=== PATIENT | female | born 1980 | race Caucasian/White ===

== ENCOUNTER 2018-10-09 08:47 | Emergency (ER) | payer OTHER ==
[2018-10-09 08:52] VITALS: BP 111/43; PULSE 87; TEMP 98.5; BMI 20.1
--- NOTE | 2018-10-09 09:05 | PDOC ---
History of Present Illness - General Chief Complaint: Weakness Stated Complaint: right hand numbness and weekness Time Seen by Provider: 10/09/18 08:49 - History of Present Illness Initial Comments: 10/09/18 09:00 37 F with h/o asthma presents to ED with intermittent R hand numbness. Pt states that for several weeks, she has been having intermittent numbness of her entire R hand. Denies any weakness but states that she feels "pins and needles" . Does not know of any exacerbating or alleviating factors. Today, she spoke with her PCP, who recommended she come to the ED to "get a scan". Pt denies any headaches. Denies neck pain. Denies weakness/numbness in any other part of her body. She has no FH of stroke. 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 Denies any recent injury or trauma to her wrist. Pt is left handed. No FH of MS or other neuro disorders. Past History - Past Medical History Allergies/Adverse Reactions: Allergies Allergy/AdvReac Type Severity Reaction Status Date / Time Penicillins Allergy Verified 10/09/18 08:48 Home Medications: Ambulatory Orders Etonogestrel/Ethinyl Estradiol [Nuvaring Vaginal Ring] 1 supp.vag VG ONCE COPD: No Other medical history: pt denies - Suicide/Smoking/Psychosocial Hx Smoking Status: No Smoking History: Never smoked Number of Cigarettes Smoked Daily: 0 Hx Alcohol Use: Yes (social) Drug/Substance Use Hx: No Review of Systems - Review of Systems Comments:: 10/09/18 09:02 "GENERAL/CONSTITUTIONAL: No fever or chills. No weakness. HEAD, EYES, EARS, NOSE AND THROAT: No change in vision. No ear pain or discharge. No sore throat. CARDIOVASCULAR: No chest pain, no shortness of breath, no loss of consciousness RESPIRATORY: No cough, wheezing, or hemoptysis. GASTROINTESTINAL: No nausea, vomiting, diarrhea or constipation. GENITOURINARY: No dysuria, frequency, or change in urination. MUSCULOSKELETAL: No joint or muscle swelling or pain. No neck or back pain. SKIN: No rash NEUROLOGIC: + R hand numbness, No vertigo, no change in strength ENDOCRINE: No increased thirst. No abnormal weight change. HEMATOLOGIC/LYMPHATIC: No anemia, easy bleeding, or history of blood clots. ALLERGIC/IMMUNOLOGIC: No hives or skin allergy. *Physical Exam - Vital Signs Last Vital Signs Temp Pulse Resp BP Pulse Ox 98.5 F 87 18 111/43 L 100 10/09/18 08:48 10/09/18 08:48 10/09/18 08:48 10/09/18 08:48 10/09/18 08:48 - Physical Exam Comments: 10/09/18 09:03 GENERAL: Awake, alert, and fully oriented, in no acute distress. HEAD: No signs of trauma EYES: PERRLA, EOMI, sclera anicteric, conjunctiva clear ENT: Auricles normal inspection, hearing grossly normal, nares patent, oropharynx clear without exudates. Moist mucosa NECK: Nontender, no stepoffs, Normal ROM, supple, no lymphadenopathy, JVD, or masses LUNGS: Breath sounds equal, clear to auscultation bilaterally. No wheezes, and no crackles HEART: Regular rate and rhythm, normal S1 and S2, no murmurs, rubs or gallops ABDOMEN: Soft, nontender, normoactive bowel sounds. No guarding, no rebound. No masses EXTREMITIES: Normal range of motion, no edema. No clubbing or cyanosis. No cords, erythema, or tenderness NEUROLOGICAL: + diminished sensation to R hand, Cranial nerves II through XII intact. 5/5 strength in all extremities, Normal speech, normal gait, normal cerebellar function SKIN: Warm, Dry, normal turgor, no rashes or lesions noted. Moderate Sedation - Procedure Monitoring Vital Signs: Procedure Monitoring Vital Signs Temperature 98.5 F 10/09/18 08:48 Pulse Rate 87 10/09/18 08:48 Respiratory Rate 18 10/09/18 08:48 Blood Pressure 111/43 L 10/09/18 08:48 O2 Sat by Pulse Oximetry (%) 100 10/09/18 08:48 Medical Decision Making - Medical Decision Making 10/09/18 09:03 37 F with intermittent R hand numbness. Likely carpal tunnel syndrome given + phalen and tinel sign on exam. Pt with NO other neuro deficits to suggest intracranial pathology. No neck pain to suggest c-spine injury. Unlikely demyelinating disease as pt with no family history. - Ortho f/u Pt is well appearing, with normal vitals. Clinically stable for DC at this time. I discussed the physical exam findings, ancillary test results and final diagnoses with the patient. I answered all of the patient's questions. The patient was satisfied with the care received and felt comfortable with the discharge plan and treatment plan. The patient agrees to follow up with the primary care physician within 24-72 hours. *DC/Admit/Observation/Transfer Diagnosis at time of Disposition: Carpal tunnel syndrome - Discharge Dispostion Disposition: HOME Condition at time of disposition: Stable - Referrals Referrals: Randy Stevens MD [Staff Physician] - - Patient Instructions Printed Discharge Instructions: DI for Carpal Tunnel Syndrome Additional Instructions: You likely have carpal tunnel syndrome. Call the number provided to make an appointment with an orthopedic surgeon for further evaluation. Avoid excessive typing or other repetitive motions involving your wrist. If you must type, wear a wrist brace. If you experience any worsening numbness, numbness extending past the wrist, weakness, or any other concerning symptoms, return to the ER immediately. - Post Discharge Activity Forms/Work/School Notes: Back to Work - Attestations Physician Attestion: 10/09/18 09:07 I, Dr. Robert Tomas MD, attest that this document has been prepared under my direction and personally reviewed by me in its entirety. I further attest, that it accurately reflects all work, treatment, procedures and medical decision -making performed by me.
== END 2018-10-09 09:18 | disposition home or self-care (01) ==
LOC: FER 08:47
DX: G56.01 Carpal tunnel syndrome, right upper limb (principal)
CPT/HCPCS: 99281-25

== ENCOUNTER 2019-01-09 09:44 | Day surgery (SDC) | payer OTHER ==
[2019-01-01 16:21] VITALS: BMI 20.1
[2019-01-09] MEDS ORDERED: PROPOFOL 20 ML ONE (10:42)
[2019-01-09] MEDS ORDERED: MIDAZOLAM HCL 2 MG/2 ML SINGLE DOSE VIAL ONE (10:42)
[2019-01-09] MEDS ORDERED: DEXAMETHASONE SOD PHOSPHATE 4 MG/1 ML VIAL ONE (10:45)
[2019-01-09] MEDS ORDERED: LIDOCAINE HCL/PF 2% SDV 5ML VIAL ONE (10:45)
[2019-01-09] MEDS ORDERED: ONDANSETRON 4 MG/2 ML VIAL ONE (10:45)
[2019-01-09] MEDS ORDERED: BUPIVACAINE HCL 0.25% 125 MG/50 ML VIAL ONE (10:52)
[2019-01-09] MEDS ORDERED: BUPIVACAINE HCL/PF 0.25% (2.5MG/ML) 10 ML VIAL IJ ONE (11:40)
[2019-01-09 12:24] VITALS: PULSE 72
[2019-01-09 13:16] VITALS: BP 105/64; TEMP 98
[2019-01-09] MEDS ORDERED: LACTATED RINGERS SOLUTION 1,000 ML IV SCH (15:15)
[2019-01-09] MEDS ORDERED: ONDANSETRON 4 MG/2 ML VIAL IVPUSH PRN (15:15)
[2019-01-09] MEDS ORDERED: oxyCODONE HCL 5 MG TABLET PO PRN ×2 (15:15)
--- NOTE | 2019-01-10 09:41 | OP ---
DATE OF OPERATION: 01/09/2019 PREOPERATIVE DIAGNOSIS: Right endoscopic carpal tunnel release. POSTOPERATIVE DIAGNOSIS: Right endoscopic carpal tunnel release. OPERATIVE PROCEDURE: Right endoscopic carpal tunnel release. SURGEON: Randy Saenz MD ANESTHESIA: General. COMPLICATIONS: None. ESTIMATED BLOOD LOSS: Minimal. INDICATION FOR PROCEDURE: The patient is a 38-year-old female with the above finding, indicated for operative treatment. The risks, benefits and alternatives were discussed with the patient at length and proper informed consent was obtained. DESCRIPTION OF PROCEDURE: After proper identification of the patient and the correct operative site, the patient was brought to the operating room and placed supine on the operating table with all prominences well padded. General anesthesia was given. The right upper extremity was prepped and draped in the usual sterile fashion. An Esmarch bandage was used to exsanguinate the right upper extremity and the tourniquet was inflated to 250 mmHg. Superficial landmarks were drawn on the skin. A transverse incision was made over the proximal wrist crease, taking care to stay ulnar to the palmaris longus tendon. Blunt and sharp dissection was done through the subcutaneous tissues. The antebrachial fascia was identified and divided. The carpal canal was then entered with an elevator and soft tissue was freed from the undersurface of the transcarpal ligament. _Hamate finder dilator was used to prepare the canal and the microaire endoscopic carpal tunnel system was used and inserted to the distal edge of the transverse carpal ligament. The blade was then deflated and the transverse carpal ligament was released. At all times throughout this procedure, excellent visualization was achieved and at no time was any soft tissue allowed to interpose between the blade and the undersurface of the transverse carpal ligament. The distal 4 cm of the antebrachial fascia were also divided under direct visualization using a mini open approach. The wound was then irrigated and repaired with a 5-0 nylon suture. Sterile dressings were applied. The patient was reversed from anesthesia and brought to the recovery room in stable condition. She tolerated the procedure well. RANDY SAENZ M.D. [id number] MTDD
== END 2019-01-09 13:19 | disposition home or self-care (01) ==
LOC: FASU 09:44
PROVIDERS: ATTEND Orthopaedic Surgery Hand Surgery
PROC: 01N54ZZ Release Median Nerve, Percutaneous Endoscopic Approach (ICD-10-PCS; principal; 2019-01-09 11:00)
DX: G56.01 Carpal tunnel syndrome, right upper limb (principal)
CPT/HCPCS: 84703; 94760

== ENCOUNTER 2021-06-03 09:15 | Emergency (ER) | payer OTHER ==
[2021-06-03 09:39] VITALS: BP 95/60; PULSE 73; TEMP 99; BMI 23.0
[2021-06-03] MEDS ORDERED: ACETAMINOPHEN 500 MG TABLET (FP) PO ONE (10:02)
[2021-06-03] MEDS ORDERED: ACETAMINOPHEN 160 MG/5 ML *Children Solution PO ONE (10:06)
[2021-06-03] MEDS ORDERED: ACETAMINOPHEN 650 MG/20.3 ML ORAL SOLUTION (CUPS) ONE (10:11)
[2021-06-03] MEDS ORDERED: KETOROLAC TROMETHAMINE 15 MG/ML VIAL IM ONE (10:57)
[2021-06-03] MEDS ORDERED: KETOROLAC TROMETHAMINE 15 MG/ML VIAL ONE (11:04)
== END 2021-06-03 14:12 | disposition home or self-care (01) ==
LOC: FER 09:15
PROC: 3E0233Z Introduction of Anti-inflammatory into Muscle, Percutaneous Approach (ICD-10-PCS; principal; 2021-06-03)
DX: M54.5 Low back pain (principal); M25.521 Pain in right elbow; M79.604 Pain in right leg; W10.8XXA Fall (on) (from) other stairs and steps, initial encounter; Y92.018 Other place in single-family (private) house as the place of occurrence of the external cause; Y93.01 Activity, walking, marching and hiking
CPT/HCPCS: 72100-TC-FY; 73070-TC-RT-FY; 73590-TC-RT-FY; 84703; 99285-25

== ENCOUNTER 2021-12-14 14:07 | Inpatient (IN) | payer BC, OTHER ==
[2021-12-14] MEDS ORDERED: VANCOMYCIN 1 GM in D5W (PRE-DOCKED) 1,000 MG/250 ML IVPB ONE (15:41)
[2021-12-14] MEDS ORDERED: VANCOMYCIN 1 GRAM (PRE-DOCKED) 1,000 MG/250 ML BAG IVPB ONE (16:13)
[2021-12-14] MEDS ORDERED: ACETAMINOPHEN 1000 MG/100 ML BAG IVPB ONE (16:14)
[2021-12-14] MEDS ORDERED: ACETAMINOPHEN INJECTION 100 ML IVPB ONE (16:37)
[2021-12-14 17:36] LABS: CALCIUM 8.9 mg/dL (8.5-10.1)
[2021-12-14 17:37] LABS: BLOOD UREA NITROGEN 9.5 mg/dL (7-18)
[2021-12-14 17:40] LABS: CREATININE 0.9 mg/dL (0.55-1.3)
[2021-12-14 17:41] LABS: BILIRUBIN,TOTAL 0.9 mg/dL (0.2-1); TOT PROT 8.1 g/dl (6.4-8.2)
[2021-12-14 17:56] LABS: BASO % 0.5 % (0-2.0); EOS % 3.7 % (0-4.5); HEMATOCRIT 38.1 % (32.4-45.2); HEMOGLOBIN 12.6 GM/dL (10.7-15.3); LYMPH % 22.9 % (8-40); MCH 31.4 pg (25.7-33.7); MEAN CELL VOLUME 95.3 fl (80-96); MEAN PLT VOLUME 7.8 fl (7.5-11.1); MONO % 5.2 % (3.8-10.2); NEUT % 67.7 % (42.8-82.8); PLATELET COUNT 273 10^3/uL (134-434); RDW 12.6 % (11.6-15.6)
[2021-12-15] MEDS ORDERED: ACETAMINOPHEN 1000 MG/100 ML BAG IVPB ONE ×2 (00:17→20:19)
[2021-12-15] MEDS ORDERED: HEPARIN NA (PORCINE) 5,000 UNITS/ML 1ML VIAL ONE (00:20)
[2021-12-15] MEDS: HEPARIN NA (PORCINE) 5,000 UNITS/ML 1ML VIAL SQ SCH ×3 (00:40→21:07)
[2021-12-15] MEDS ORDERED: VANCOMYCIN 1,000 MG in DEXTROSE 5%-WATER - 250 ML IVPB SCH (04:00)
[2021-12-15] MEDS ORDERED: SODIUM CHLORIDE 1,000 ML IV SCH (04:30)
[2021-12-15] MEDS: VANCOMYCIN 1 GRAM (PRE-DOCKED) 1,000 MG/250 ML BAG IVPB SCH ×2 (04:55→17:45)
[2021-12-15 05:28] VITALS: BMI 24.7
[2021-12-15 09:57] LABS: BASO % 0.6 % (0-2.0); HEMATOCRIT 37.5 % (32.4-45.2); HEMOGLOBIN 12.5 GM/dL (10.7-15.3); LYMPH % 36.2 % (8-40); MCH 31.6 pg (25.7-33.7); MCHC 33.3 g/dl (32.0-36.0); MEAN CELL VOLUME 94.9 fl (80-96); NEUT % 48.2 % (42.8-82.8); PLATELET COUNT 296 10^3/uL (134-434); RBC 3.95 M/mm3 (3.60-5.2); RDW 12.6 % (11.6-15.6); WHITE BLOOD COUNT 8.7 K/mm3 (4.0-10.0)
[2021-12-15 10:12] LABS: CALCIUM 8.6 mg/dL (8.5-10.1)
[2021-12-15 10:13] LABS: ALBUMIN 3.5 g/dl (3.4-5.0)
[2021-12-15 10:15] LABS: CREATININE 0.5 mg/dL (0.55-1.3)
[2021-12-15 10:17] LABS: BILIRUBIN,TOTAL 0.6 mg/dL (0.2-1); TOT PROT 7.2 g/dl (6.4-8.2)
[2021-12-15] MEDS ORDERED: traMADol HCL 50 MG TABLET PO PRN (12:28)
[2021-12-15] MEDS ORDERED: ACETAMINOPHEN 325 MG TABLET (FP) PO PRN (12:28)
[2021-12-15] MEDS ORDERED: KETOROLAC TROMETHAMINE 30 MG/1 ML VIAL IVPUSH PRN (17:18)
[2021-12-15] MEDS ORDERED: ONDANSETRON *ODT* 4 MG TABLET SL PRN (17:19)
[2021-12-15] MEDS ORDERED: FAMOTIDINE 20 MG/50 ML IVPB 20 MG/50 ML MG IVPB ONE (17:19)
[2021-12-15] MEDS ORDERED: DEXTROSE 5%-NORMAL SALINE 1,000 ML IV SCH (22:00)
[2021-12-16] MEDS: VANCOMYCIN 1 GRAM (PRE-DOCKED) 1,000 MG/250 ML BAG IVPB SCH ×2 (05:14→16:06)
[2021-12-16] MEDS: HEPARIN NA (PORCINE) 5,000 UNITS/ML 1ML VIAL SQ SCH ×2 (09:43→21:59)
[2021-12-16] MEDS ORDERED: MIDAZOLAM HCL 2 MG/2 ML SINGLE DOSE VIAL ONE (19:31)
[2021-12-16] MEDS ORDERED: VANCOMYCIN 1,000 MG VIAL (RESTRICTED TO ID ONLY) IVPB ONE (19:43)
[2021-12-16] MEDS ORDERED: VANCOMYCIN 1,000 MG VIAL (RESTRICTED TO ID ONLY) ONE (19:49)
[2021-12-16] MEDS ORDERED: DEXAMETHASONE SOD PHOSPHATE 4 MG/1 ML VIAL ONE (20:01)
[2021-12-16] MEDS ORDERED: KETOROLAC TROMETHAMINE 30 MG/1 ML VIAL ONE (20:01)
[2021-12-16] MEDS ORDERED: KETOROLAC TROMETHAMINE 30 MG/1 ML VIAL IVPUSH PRN (21:19)
[2021-12-16] MEDS ORDERED: traMADol HCL 50 MG TABLET PO PRN (21:19)
[2021-12-16] MEDS ORDERED: ONDANSETRON *ODT* 4 MG TABLET SL PRN (21:19)
[2021-12-16] MEDS: DEXTROSE 5%-NORMAL SALINE 1,000 ML IV SCH (22:00)
[2021-12-17] MEDS ORDERED: ACETAMINOPHEN 1000 MG/100 ML BAG IVPB ONE (04:30)
[2021-12-17] MEDS: VANCOMYCIN 1 GRAM (PRE-DOCKED) 1,000 MG/250 ML BAG IVPB SCH ×2 (05:07→16:33)
[2021-12-17] MEDS: DEXTROSE 5%-NORMAL SALINE 1,000 ML IV SCH ×2 (06:17→20:51)
[2021-12-17 10:02] LABS: HEMATOCRIT 35.6 % (32.4-45.2); HEMOGLOBIN 11.8 GM/dL (10.7-15.3); MCH 31.6 pg (25.7-33.7); MCHC 33.3 g/dl (32.0-36.0); MEAN CELL VOLUME 94.9 fl (80-96); MEAN PLT VOLUME 7.9 fl (7.5-11.1); PLATELET COUNT 303 10^3/uL (134-434); RBC 3.75 M/mm3 (3.60-5.2); RDW 12.5 % (11.6-15.6); WHITE BLOOD COUNT 7.9 K/mm3 (4.0-10.0)
[2021-12-17 10:35] LABS: CALCIUM 8.4 mg/dL (8.5-10.1)
[2021-12-17 10:36] LABS: ALBUMIN 3.2 g/dl (3.4-5.0); BLOOD UREA NITROGEN 5.3 mg/dL (7-18)
[2021-12-17 10:39] LABS: CREATININE 0.8 mg/dL (0.55-1.3)
[2021-12-17 10:40] LABS: BILIRUBIN,TOTAL 0.4 mg/dL (0.2-1); TOT PROT 6.5 g/dl (6.4-8.2)
[2021-12-17] MEDS: HEPARIN NA (PORCINE) 5,000 UNITS/ML 1ML VIAL SQ SCH ×2 (10:53→21:08)
[2021-12-18] MEDS: ACETAMINOPHEN 1000 MG/100 ML BAG IVPB PRN ×3 (00:23→17:56)
[2021-12-18] MEDS: VANCOMYCIN 1 GRAM (PRE-DOCKED) 1,000 MG/250 ML BAG IVPB SCH ×2 (05:12→17:02)
[2021-12-18] MEDS: HEPARIN NA (PORCINE) 5,000 UNITS/ML 1ML VIAL SQ SCH ×2 (09:46→22:02)
[2021-12-18] MEDS: DEXTROSE 5%-NORMAL SALINE 1,000 ML IV SCH (21:52)
[2021-12-19] MEDS: ACETAMINOPHEN 1000 MG/100 ML BAG IVPB PRN ×3 (00:04→22:02)
[2021-12-19] MEDS: DEXTROSE 5%-NORMAL SALINE 1,000 ML IV SCH ×3 (03:37→22:17)
[2021-12-19] MEDS: VANCOMYCIN 1 GRAM (PRE-DOCKED) 1,000 MG/250 ML BAG IVPB SCH ×2 (05:48→17:48)
[2021-12-19] MEDS: HEPARIN NA (PORCINE) 5,000 UNITS/ML 1ML VIAL SQ SCH ×2 (10:09→22:03)
[2021-12-20] MEDS: VANCOMYCIN 1 GRAM (PRE-DOCKED) 1,000 MG/250 ML BAG IVPB SCH ×3 (04:13→19:42)
[2021-12-20] MEDS: HEPARIN NA (PORCINE) 5,000 UNITS/ML 1ML VIAL SQ SCH (09:15)
[2021-12-20 10:12] LABS: HEMOGLOBIN 12.1 GM/dL (10.7-15.3); MCH 31.8 pg (25.7-33.7); MCHC 33.7 g/dl (32.0-36.0); MEAN CELL VOLUME 94.3 fl (80-96); PLATELET COUNT 320 10^3/uL (134-434); RBC 3.82 M/mm3 (3.60-5.2); RDW 12.4 % (11.6-15.6); WHITE BLOOD COUNT 9.8 K/mm3 (4.0-10.0)
[2021-12-20 10:24] LABS: BLOOD UREA NITROGEN 5.3 mg/dL (7-18); CALCIUM 8.2 mg/dL (8.5-10.1)
[2021-12-20 10:25] LABS: ALBUMIN 3.2 g/dl (3.4-5.0)
[2021-12-20 10:28] LABS: CREATININE 0.7 mg/dL (0.55-1.3)
[2021-12-20 10:29] LABS: BILIRUBIN,TOTAL 0.5 mg/dL (0.2-1); TOT PROT 6.7 g/dl (6.4-8.2)
[2021-12-20] MEDS: ENOXAPARIN NA (PORCINE) 80 MG/0.8 ML DISP.SYRIN SQ SCH (17:51)
[2021-12-20] MEDS: ACETAMINOPHEN 325 MG TABLET (FP) PO PRN (17:56)
[2021-12-20] MEDS: DEXTROSE 5%-NORMAL SALINE 1,000 ML IV SCH (20:34)
[2021-12-21] MEDS: ENOXAPARIN NA (PORCINE) 80 MG/0.8 ML DISP.SYRIN SQ SCH ×2 (05:36→17:49)
[2021-12-21] MEDS: VANCOMYCIN 1 GRAM (PRE-DOCKED) 1,000 MG/250 ML BAG IVPB SCH ×2 (05:37→17:49)
[2021-12-21] MEDS: ACETAMINOPHEN 325 MG TABLET (FP) PO PRN (14:27)
[2021-12-22] MEDS: VANCOMYCIN 1 GRAM (PRE-DOCKED) 1,000 MG/250 ML BAG IVPB SCH (05:30)
[2021-12-22] MEDS: ENOXAPARIN NA (PORCINE) 80 MG/0.8 ML DISP.SYRIN SQ SCH (06:47)
[2021-12-22 14:31] VITALS: BP 117/71; PULSE 76; TEMP 98
== END 2021-12-22 17:00 | disposition home health service (06) | DRG 572 ==
LOC: JER 14:07 → JERBED 18:47 → J6S 12-15 03:38
PROVIDERS: ADMIT Internal Medicine; ATTEND Family Medicine
PROC: 0JBH0ZZ Excision of Left Lower Arm Subcutaneous Tissue and Fascia, Open Approach (ICD-10-PCS; principal; 2021-12-16 15:30)
DX: L02.414 Cutaneous abscess of left upper limb (principal); L03.114 Cellulitis of left upper limb; Z88.0 Allergy status to penicillin; R45.1 Restlessness and agitation; F41.9 Anxiety disorder, unspecified; I80.8 Phlebitis and thrombophlebitis of other sites; B95.62 Methicillin resistant Staphylococcus aureus infection as the cause of diseases classified elsewhere
CPT/HCPCS: 36415; 71045-TC-FY; 73201-TC-RT; 80053; 82962; 83605; 84484; 84703; 85025; 85027; 86140; 87040; 93005; 93010; 93971; 94760; 99285-25; C9803; G0480; J1644; U0003; U0005

== ENCOUNTER 2022-02-09 00:58 | Emergency (ER) | payer BC ==
[2022-02-09 01:40] VITALS: BP 109/66; PULSE 84; TEMP 97.6; BMI 24.7
[2022-02-09] MEDS ORDERED: DALBAVANCIN HCL 1,500 MG in DEXTROSE 5%-WATER - 500 ML IVPB ONE (02:04)
[2022-02-09] MEDS ORDERED: KETOROLAC TROMETHAMINE 15 MG/ML VIAL IVPUSH ONE (02:04)
[2022-02-09] MEDS ORDERED: KETOROLAC TROMETHAMINE 15 MG/ML VIAL ONE (02:34)
[2022-02-09 02:37] LABS: BASO % 0.7 % (0-2.0); HEMATOCRIT 36.1 % (32.4-45.2); HEMOGLOBIN 12.4 GM/dL (10.7-15.3); LYMPH % 27.1 % (8-40); MCHC 34.4 g/dl (32.0-36.0); MEAN PLT VOLUME 7.4 fl (7.5-11.1); MONO % 7.3 % (3.8-10.2); NEUT % 56.9 % (42.8-82.8); PLATELET COUNT 299 10^3/uL (134-434); RBC 3.88 M/mm3 (3.60-5.2); RDW 13.1 % (11.6-15.6); WHITE BLOOD COUNT 8.7 K/mm3 (4.0-10.0)
[2022-02-09 02:58] LABS: CALCIUM 8.7 mg/dL (8.5-10.1)
[2022-02-09 02:59] LABS: ALBUMIN 3.6 g/dl (3.4-5.0); BLOOD UREA NITROGEN 14.5 mg/dL (7-18)
[2022-02-09 03:02] LABS: CREATININE 0.7 mg/dL (0.55-1.3)
[2022-02-09 03:04] LABS: BILIRUBIN,TOTAL 0.5 mg/dL (0.2-1); TOT PROT 7.2 g/dl (6.4-8.2)
[2022-02-09] MEDS ORDERED: DALBAVANCIN HCL 500 MG VIAL (RESTRICTED TO ID ONLY) IVPB ONE (03:04)
== END 2022-02-09 04:56 | disposition home or self-care (01) ==
LOC: JER 00:58
PROC: 3E0333Z Introduction of Anti-inflammatory into Peripheral Vein, Percutaneous Approach (ICD-10-PCS; principal; 2022-02-09)
DX: L03.114 Cellulitis of left upper limb (principal)
CPT/HCPCS: 36415; 80053; 85025; 99284-25; J0875

== ENCOUNTER 2023-02-28 04:25 | Inpatient (IN) | payer OTHER ==
[2023-02-27 09:59] VITALS: BMI 23.8
[2023-02-28] MEDS: PANTOPRAZOLE SODIUM 40 MG VIAL IVPUSH SCH (14:50)
[2023-02-28 16:30] LABS: BASO % 0.6 % (0-2.0); EOS % 4.4 % (0-4.5); HEMATOCRIT 37.4 % (32.4-45.2); HEMOGLOBIN 12.7 GM/dL (10.7-15.3); LYMPH % 23.8 % (8-40); MCH 31.3 pg (25.7-33.7); MCHC 33.9 g/dl (32.0-36.0); MEAN CELL VOLUME 92.2 fl (80-96); MEAN PLT VOLUME 7.8 fl (7.5-11.1); MONO % 5.9 % (3.8-10.2); NEUT % 65.3 % (42.8-82.8); PLATELET COUNT 296 10^3/uL (134-434); RBC 4.06 M/mm3 (3.60-5.2); RDW 13.7 % (11.6-15.6); WHITE BLOOD COUNT 8.8 K/mm3 (4.0-10.0)
[2023-02-28 17:08] LABS: ALBUMIN 3.6 g/dl (3.4-5.0); BLOOD UREA NITROGEN 9.4 mg/dL (7-18); CALCIUM 8.7 mg/dL (8.5-10.1)
[2023-02-28 17:10] LABS: CREATININE 0.7 mg/dL (0.55-1.3)
[2023-02-28 17:13] LABS: BILIRUBIN,TOTAL 0.7 mg/dL (0.2-1); TOT PROT 7.3 g/dl (6.4-8.2)
[2023-02-28] MEDS ORDERED: ACETAMINOPHEN 325 MG TABLET (FP) PO PRN (18:00)
[2023-02-28] MEDS ORDERED: ACETAMINOPHEN 1000 MG/100 ML BAG IVPB ONE (18:00)
[2023-02-28 18:28] VITALS: RESP 18
[2023-03-01 09:04] LABS: HEMATOCRIT 38.7 % (32.4-45.2); HEMOGLOBIN 13.2 GM/dL (10.7-15.3); MCH 31.4 pg (25.7-33.7); MCHC 34.1 g/dl (32.0-36.0); MEAN CELL VOLUME 91.9 fl (80-96); MEAN PLT VOLUME 8.3 fl (7.5-11.1); PLATELET COUNT 293 10^3/uL (134-434); RBC 4.21 M/mm3 (3.60-5.2); RDW 13.6 % (11.6-15.6); WHITE BLOOD COUNT 9.9 K/mm3 (4.0-10.0)
[2023-03-01 09:29] LABS: CALCIUM 8.8 mg/dL (8.5-10.1)
[2023-03-01 09:30] LABS: ALBUMIN 3.6 g/dl (3.4-5.0); BLOOD UREA NITROGEN 10.9 mg/dL (7-18)
[2023-03-01 09:32] LABS: TOT PROT 7.3 g/dl (6.4-8.2)
[2023-03-01 09:33] LABS: CREATININE 0.8 mg/dL (0.55-1.3)
[2023-03-01] MEDS: PANTOPRAZOLE SODIUM 40 MG VIAL IVPUSH SCH (10:10)
[2023-03-01] MEDS ORDERED: MAG HYDROX/AL HYDROX/SIMETH -MYLANTA- ORAL SUSPENSION PO ONE (10:12)
[2023-03-01 14:58] VITALS: BP 91/61; PULSE 70; TEMP 98.2
== END 2023-03-01 18:35 | disposition home or self-care (01) | DRG 243 ==
LOC: JASU-ENDO 04:25 → J2C 16:50 → J6S 18:15
PROVIDERS: ADMIT Family Medicine; ATTEND Family Medicine
PROC: 0DB58ZX Excision of Esophagus, Via Natural or Artificial Opening Endoscopic, Diagnostic (ICD-10-PCS; principal; 2023-02-28 10:45)
DX: K22.2 Esophageal obstruction (principal); K21.00 Gastro-esophageal reflux disease with esophagitis, without bleeding; K30 Functional dyspepsia
CPT/HCPCS: 36415; 70490-TC; 71250-TC; 74220-TC-FY; 80053; 81025; 85025; 85027; 86850; 86900; 86901; 87086; 87186; 88305-TC; C9803-CS; U0003; U0005

== ENCOUNTER 2023-04-25 04:36 | Day surgery (SDC) | payer OTHER ==
[2023-04-20 14:49] VITALS: BMI 23.8
[2023-04-25 10:43] VITALS: BP 99/44; PULSE 73; RESP 17; TEMP 98.9
== END 2023-04-25 10:44 | disposition home or self-care (01) ==
LOC: JASU-ENDO 04:36
PROVIDERS: ATTEND Internal Medicine Gastroenterology
PROC: 0DBN8ZX Excision of Sigmoid Colon, Via Natural or Artificial Opening Endoscopic, Diagnostic (ICD-10-PCS; principal; 2023-04-25 10:15)
DX: K63.5 Polyp of colon (principal); K64.8 Other hemorrhoids
CPT/HCPCS: 81025; 88305-TC

== ENCOUNTER 2024-01-06 12:58 | Emergency (ER) | payer OTHER ==
[2024-01-06 13:29] VITALS: BMI 23.8
[2024-01-06 13:54] VITALS: BP 98/53; PULSE 68; RESP 16; TEMP 98.5
[2024-01-06 14:37] LABS: HEMATOCRIT 39.2 % (32.4-45.2); HEMOGLOBIN 13.3 G/dL (10.7-15.3); MCH 31.5 pg (25.7-33.7); MCHC 33.9 g/dl (32.0-36.0); MEAN PLT VOLUME 7.9 fl (7.5-11.1); PLATELET COUNT 271.5 10^3/uL (134-434); RBC 4.22 10^6/uL (3.60-5.2); RDW 13.6 % (11.6-15.6); WHITE BLOOD COUNT 9.1 10^3/uL (4.0-10.8)
[2024-01-06 14:43] LABS: PLATELET ESTIMATE ADEQUATE
[2024-01-06 14:47] LABS: ALBUMIN 4.5 g/dl (3.4-5.0); BILIRUBIN,TOTAL 1.1 mg/dl (0.2-1); CALCIUM 9.4 mg/dl (8.5-10.1); CREATININE 0.8 mg/dl (0.6-1.3); MAGNESIUM 1.9 mg/dL (1.8-2.4); TOT PROT 7.5 g/dl (6.4-8.2)
[2024-01-06] MEDS: diphenhydrAMINE HCL 12.5 MG/5 ML UNIT-DOSE CUPS PO ONE (15:18)
[2024-01-06] MEDS ORDERED: prednisoLONE SODIUM PHOSPHATE 15 MG/5 ML ORAL SOLN BOTTLE ONE (16:05)
[2024-01-06] MEDS: predniSONE 5 MG/5 ML ORAL SOLN- UNIT-DOSE CUP PO ONE (16:13)
== END 2024-01-06 16:20 | disposition home or self-care (01) ==
LOC: FER 12:58
DX: R20.0 Anesthesia of skin (principal); R00.2 Palpitations; R21 Rash and other nonspecific skin eruption; L25.9 Unspecified contact dermatitis, unspecified cause
CPT/HCPCS: 36415; 70450-TC; 80053; 81025; 83735; 85027; 93005; 99285-25

== ENCOUNTER 2024-06-30 15:37 | Emergency (ER) | payer OTHER ==
[2024-06-30 16:17] VITALS: BP 106/56; PULSE 89; RESP 18; TEMP 98.4; BMI 24.7
== END 2024-06-30 17:12 | disposition home or self-care (01) ==
LOC: FER 15:37
DX: M79.632 Pain in left forearm (principal); M25.532 Pain in left wrist; M79.642 Pain in left hand; R20.0 Anesthesia of skin
CPT/HCPCS: 73090-TC-LT-FY; 73110-TC-LT-FY; 73130-TC-LT-FY; 99283-25

== ENCOUNTER 2024-11-07 06:58 | Day surgery (SDC) | payer OTHER ==
[2024-10-29 14:28] VITALS: BMI 24.3
[2024-11-07 07:25] VITALS: RESP 16
[2024-11-07] MEDS ORDERED: LIDOCAINE 1%/EPI 1:100000 (20 ML MULTI DOSE VIAL) ONE (08:02)
[2024-11-07] MEDS ORDERED: MIDAZOLAM HCL 2 MG/2 ML SINGLE DOSE VIAL ONE (08:46)
[2024-11-07] MEDS ORDERED: FENTANYL CITRATE/PF 50 MCG/ML VIAL ONE (08:46)
[2024-11-07] MEDS ORDERED: ONDANSETRON 4 MG/2 ML VIAL ONE (08:47)
[2024-11-07] MEDS ORDERED: PROPOFOL 20 ML ONE (09:00)
[2024-11-07 09:50] VITALS: PULSE 78; TEMP 96.9
[2024-11-07 10:07] VITALS: BP 108/64
== END 2024-11-07 10:12 | disposition home or self-care (01) ==
LOC: FASU 06:58
PROVIDERS: ATTEND Orthopaedic Surgery Sports Medicine
PROC: 01N50ZZ Release Median Nerve, Open Approach (ICD-10-PCS; principal; 2024-11-07 09:09)
DX: G56.02 Carpal tunnel syndrome, left upper limb (principal)
CPT/HCPCS: 81025